=== PATIENT | male | born 1945 | race Caucasian/White ===

== ENCOUNTER 2023-02-18 09:14 | Day surgery (SDC) | payer MEDICARE ==
[2023-02-18] VITALS (9 sets, daily range): BP systolic 105–171; BP diastolic 56–80
[~2023-02-18] VITALS: Ht 177.8 cm; Wt 90.1 kg
[~2023-02-18 09:14] MED LIST: ASPI-10 PO; CLOP75TA34 PO; COR3.125T PO; HYDR-3965 PO; LOSA25TA96 PO; NIA500ERT PO
[2023-02-18] MEDS ORDERED: diphenhydrAMINE 25mg capsule PO PRN (09:55)
[2023-02-18] MEDS ORDERED: LORazepam 0.5 MG tablet PO PRN (09:55)
[2023-02-18] MEDS ORDERED: normal saline 1,000 ML IV SCH (09:55)
[2023-02-18] MEDS ORDERED: iohexol 350 MG/ML 50ML vial IV ONE (09:59)
[2023-02-18] MEDS ORDERED: heparin 1,000unit/ml 10ml vial 10 ML ONE (09:59)
[2023-02-18] MEDS ORDERED: iohexol 350MG/ML 100ml bottle IV ONE (09:59)
[2023-02-18] MEDS ORDERED: nitroGLYCERIN-Tridil 50MG/D5W 250 ML IV ONE (10:03)
[2023-02-18] MEDS ORDERED: verapamil 2.5 mg/ml inj IV ONE (10:04)
[2023-02-18] MEDS ORDERED: LIDOcaine 1% (10mg/ml) 2ml vial ONE ×2 (10:04→10:50)
[2023-02-18] MEDS ORDERED: fentaNYL/PF 50MCG/1 ML 2ML syringe ONE (10:04)
[2023-02-18] MEDS ORDERED: midazolam 1 mg/ML 2ml injection ONE (10:04)
[2023-02-18] MEDS ORDERED: POLY17PO10 PO (10:12)
[2023-02-18] MEDS ORDERED: OMEP20CA16 PO (10:13)
[2023-02-18] MEDS ORDERED: LOSA100T57 PO (10:13)
[2023-02-18] MEDS ORDERED: CHOL20002 PO (10:14)
[2023-02-18] MEDS ORDERED: ASPI-1071 PO (10:14)
[2023-02-18] MEDS ORDERED: furosemide 40mg/4ml inj ONE (12:03)
[2023-02-18 12:40] LABS: ISTAT Hct MIX 44 %PCV (42-52); ISTAT O2 SATURATION MIX VENOUS 69 % (60-80); ISTAT SOURCE BLNK
[2023-02-18] MEDS ORDERED: normal saline 1000ml 1,000 ML IV SCH (12:50)
[2023-02-18] MEDS ORDERED: furosemide 20 MG/2 ML vial IV ONE (12:55)
[2023-02-23 08:10] LABS: ISTAT Hct MIX 45 %PCV (42-52); ISTAT O2 SATURATION MIX VENOUS 93 % (60-80); ISTAT SOURCE BLNK
== END 2023-02-18 15:55 | disposition home or self-care (01) ==
LOC: SSTAY O 09:14
PROVIDERS: ATTEND Internal Medicine Cardiovascular Disease
DX: I25.10 Atherosclerotic heart disease of native coronary artery without angina pectoris (principal); I42.0 Dilated cardiomyopathy; I11.0 Hypertensive heart disease with heart failure; I50.22 Chronic systolic (congestive) heart failure; E78.5 Hyperlipidemia, unspecified; I34.1 Nonrheumatic mitral (valve) prolapse; K21.9 Gastro-esophageal reflux disease without esophagitis; J44.9 Chronic obstructive pulmonary disease, unspecified; I65.23 Occlusion and stenosis of bilateral carotid arteries; Z85.46 Personal history of malignant neoplasm of prostate; Z98.890 Other specified postprocedural states; Z72.89 Other problems related to lifestyle; Z87.891 Personal history of nicotine dependence; Z88.8 Allergy status to other drugs, medicaments and biological substances; Z95.5 Presence of coronary angioplasty implant and graft; Z79.899 Other long term (current) drug therapy; Z79.82 Long term (current) use of aspirin; Z82.5 Family history of asthma and other chronic lower respiratory diseases
CPT/HCPCS: 82803; 85014; 93005; 93460; 99152; C1894; J1644; J1940; J2250; J3010; J3490; J7030; Q0163; Q9967; 99153; A6258; A6402; C1725; C1751

== ENCOUNTER 2023-07-08 05:52 | Day surgery (SDC) | payer MEDICARE ==
[2023-07-08] VITALS (12 sets, daily range): BP systolic 104–129; BP diastolic 57–70; PULSE 73–99; RESP 12–18; TEMP 98; O2SAT 94–98
[~2023-07-08] VITALS: Ht 177.8 cm; Wt 87.3 kg
[~2023-07-08 05:52] MED LIST changes: -ASPI-10 PO; +ASPI-1071 PO; +CHOL20002 PO; -CLOP75TA34 PO; -HYDR-3965 PO; +LOSA100T58 PO; -LOSA25TA96 PO; -NIA500ERT PO; +OMEP20CA16 PO; +POLY17PO10 PO
[2023-07-08] MEDS ORDERED: cefazolin 2gm/D5W 100mL 100 ML IV ONE (06:40)
[2023-07-08] MEDS ORDERED: clindamycin-Cleocin 900mg/D5W 50 ML IV ONE (06:40)
[2023-07-08] MEDS ORDERED: SPIR25TA5 PO (06:51)
[2023-07-08] MEDS ORDERED: CHOL20002 PO (06:51)
[2023-07-08] MEDS ORDERED: DAPA10TA PO (06:51)
[2023-07-08 07:06] LABS: PROTHROMBIN TIME 10.6 SECONDS (9.0-12.0)
[2023-07-08] MEDS ORDERED: midazolam 1 mg/ML 2ml injection ONE ×3 (07:36→10:36)
[2023-07-08] MEDS ORDERED: iohexol 350MG/ML 100ml bottle IV ONE (07:36)
[2023-07-08] MEDS ORDERED: LIDOcaine 1% w/EPI 1:100,000 inj. MDV 50 ML VIAL ONE (07:36)
[2023-07-08] MEDS ORDERED: fentaNYL/PF 50MCG/1 ML 2ML syringe ONE (07:36)
[2023-07-08] MEDS ORDERED: ceFAZolin 1000mg inj ONE (07:36)
[2023-07-08] MEDS ORDERED: HYDROcodone/acetaminophen 5mg/325mg tablet PO PRN (11:55)
[2023-07-08] MEDS ORDERED: HYDROcodone/acetaminophen 10/325mg tab PO PRN (11:55)
[2023-07-08] MEDS ORDERED: normal saline 1000ml 1,000 ML IV SCH (11:55)
[2023-07-08] MEDS ORDERED: vancomycin/NS 1 GM ADD-VANTAGE 250 ML IV ONE (13:00)
== END 2023-07-08 16:00 | disposition home or self-care (01) ==
LOC: SSTAY O 05:52
PROVIDERS: ATTEND Internal Medicine Cardiovascular Disease
DX: I42.0 Dilated cardiomyopathy (principal); I44.7 Left bundle-branch block, unspecified; I11.0 Hypertensive heart disease with heart failure; I50.22 Chronic systolic (congestive) heart failure; E78.5 Hyperlipidemia, unspecified; I25.10 Atherosclerotic heart disease of native coronary artery without angina pectoris; I08.1 Rheumatic disorders of both mitral and tricuspid valves; Z79.899 Other long term (current) drug therapy
CPT/HCPCS: 33225; 33249; 36415; 71046; 85610; 93005; 99152; 99153; C1769; C1882; C1895; C1898; C1900; J0690; J2250; J3010; J3370; J3490; J7030; Q9967; A4565; A6258; A6449

== ENCOUNTER 2023-08-31 08:00 | Inpatient (IN) | payer MEDICARE ==
[2023-08-19 11:23] LABS: ABG BASE EXCESS -2.8 mmol/L (-2.0-2.0); ABG OXYGEN SATURATION 97.9 % (94-97); ABG PCO2 (T) 30.6 mmHg (35.0-48.0); ABG PH (T) 7.434 (7.340-7.440); ABG PO2 (T) 94.8 mmHg (75.0-100.0); ALLEN'S TEST Yes; FCOHb 0.6 % (0.0-3.9); FHHb 2.1 % (0.0-5.0); FMetHb 0.3 % (0.0-1.5); MODE ROOM AIR
[~2023-08-31] VITALS: Ht 177.8 cm; Wt 98.4 kg
[~2023-08-31 08:00] MED LIST changes: +DAPA10TA PO; +SPIR25TA5 PO; +albuterol 2.5 MG/3 ML nebule NEB ONE
[2023-09-10] VITALS (39 sets, daily range): BP systolic 110–174; BP diastolic 45–99; PULSE 28–100; RESP 11–18; TEMP 97–98.1; O2SAT 96–100
[2023-09-10] MEDS ORDERED: ringers solution, lacted 1,000 ML IV SCH ×2 (05:00→14:35)
[2023-09-10] MEDS ORDERED: DOCUMENT DATE & TIME OF BETA-BLOCKER PO ONE (05:30)
[2023-09-10] MEDS ORDERED: famotidine 20mg tablet PO ONE (05:30)
[2023-09-10] MEDS ORDERED: cefazolin 2gm/D5W 100mL 100 ML IV ONE (05:30)
[2023-09-10 09:55] LABS: BASOPHILS % (AUTO) 0.5 % (0-1); EOSINOPHILS # (AUTO) 0.2 X10'3 (0-0.9); EOSINOPHILS % (AUTO) 3.4 % (0-6); LYMPHOCYTES # (AUTO) 1.4 X10'3 (1.1-4.8); LYMPHOCYTES % (AUTO) 23.1 % (21-51); MEAN CORPUSCULAR HEMOGLOBIN 32.1 PG (27.0-31.0); MEAN CORPUSCULAR HGB CONC 34.3 g/dL (33.0-36.5); MEAN CORPUSCULAR VOLUME 93.7 FL (78-98); MEAN PLATELET VOLUME 8.4 FL (7.4-10.4); MONOCYTES # (AUTO) 0.6 X10'3 (0-0.9); MONOCYTES % (AUTO) 9.2 % (2-12); NEUTROPHILS # (AUTO) 3.8 X10'3 (1.8-7.7); NEUTROPHILS % (AUTO) 63.8 % (42-75); PRE OP HEMATOCRIT 47.6 % (42.0-52.0); PRE OP HEMOGLOBIN 16.3 g/dL (14.0-17.9); PRE OP PLATELET COUNT 163 X10'3 (140-440); RED BLOOD COUNT 5.08 X10'6 (4.70-6.10); RED CELL DISTRIBUTION WIDTH 13.1 % (11.5-14.5)
[2023-09-10] MEDS ORDERED: sevoflurane 250ml liquid IH ONE (09:56)
[2023-09-10] MEDS ORDERED: ceFAZolin/dextrose 1 GM/50ml ADD-VANTAGE bag IV ONE (09:56)
[2023-09-10 10:01] LABS: APTT 26 SECONDS (22-32); PRE OP INR 0.9 INR; PRE OP PROTIME 10.2 SECONDS (9.0-12.0)
[2023-09-10 10:02] LABS: ALBUMIN/GLOBULIN RATIO 1.1 (1.1-1.5); ALKALINE PHOSPHATASE 62 IU/L (46-116); BLOOD UREA NITROGEN 18 MG/DL (7-18); BUN/CREATININE RATIO 15.3 (10.0-20.0); CALCIUM 9.2 MG/DL (8.5-10.1); CHLORIDE 101 MMOL/L (99-107); CREATININE 1.18 MG/DL (0.60-1.10); PRE OP ALT 18 U/L (30-65); PRE OP ANION GAP 6 (8-16); PRE OP AST 15 U/L (10-37); PRE OP BILIRUB, TOTAL 0.6 MG/DL (0.0-1.0); PRE OP GLUCOSE 102 MG/DL (70-104); PRE OP POTASSIUM 4.3 MMOL/L (3.4-5.1); PRE OP SODIUM 137 MMOL/L (135-145); TOTAL CARBON DIOXIDE 30.2 MMOL/L (24-32); TOTAL PROTEIN 7.5 G/DL (6.4-8.2); eCRCL 53 ML/MIN; eGFR 60 ML/MIN
[2023-09-10] MEDS ORDERED: midazolam 1 mg/ML 2ml injection ONE (10:03)
[2023-09-10] MEDS ORDERED: fentaNYL /PF 50mcg/ml 5ml ampule ONE (10:20)
[2023-09-10] MEDS ORDERED: BUPIVACAINE liposomal/PF 13.3 MG/ML vial IM ONE (10:22)
[2023-09-10] MEDS ORDERED: BUPIVAcaine/PF 2.5mg/ml (0.25%) 10ml vial ONE (10:22)
[2023-09-10 10:26] LABS: BILIRUBIN,URINE NEGATIVE (Neg); CLARITY,URINE CLEAR (Clear); COLOR,URINE YELLOW (Yellow); GLUCOSE, URINE >=1000 mg/dl (Neg); KETONES,URINE TRACE mg/dl (Neg); LEUKOCYTE ESTERASE ,URINE NEGATIVE (Neg); NITRITES, URINE NEGATIVE (Neg); OCCULT BLOOD,URINE NEGATIVE (Neg); PROTEIN,URINE NEGATIVE (Neg); UROBILINOGEN,URINE 0.2 E.U/dL (0.2-1.0)
[2023-09-10 10:32] LABS: UA COLLECTION TYPE CLN CATCH MIDSTREAM
[2023-09-10 10:35] LABS: BACTERIA,URINE NONE SEEN /HPF (Neg); RBC,URINE 0-2 /HPF (0-2); SQUAMOUS EPITHELIAL CELL,UR FEW /LPF (FEW); WBC,URINE 0-4 /HPF (0-4)
[2023-09-10] MEDS ORDERED: rocuronium 10mg/ml inj IV ONE ×2 (11:15)
[2023-09-10] MEDS ORDERED: LIDOcaine 2% (20mg/ml) 5ml vial ONE (11:15)
[2023-09-10] MEDS ORDERED: propofol inj 20 ML IV ONE (11:15)
[2023-09-10] MEDS ORDERED: ondansetron/PF 4mg/2ml inj ONE (13:57)
[2023-09-10] MEDS ORDERED: phenylephrine 10mg/ml inj. -priapism dosing ONE (13:57)
[2023-09-10] MEDS ORDERED: dexamethasone sod phosphate 4mg/ml inj. ONE (13:57)
[2023-09-10] MEDS ORDERED: glycopyrrolate 0.2mg/ml inj ONE (14:16)
[2023-09-10] MEDS ORDERED: neostigmine methylsulfate 1 MG/ML 10ml vial ONE (14:16)
--- NOTE | 2023-09-10 14:30 | NUR ---
Received from OR via ICU BED TO RR 7, accompanied by Anesthesiologist DR BLEVINS and report given by Anesthesiolgist. PT PRESENTS WITH PIV 20G LEFT FOREARM, CENTRAL LINE RIGHT IJ, ART LINE RIGHT WRIST, CHEST TUBE RIGHT CHEST, SPO2 98% 6L MASK, RT PAGED FOR ABG, CHEST XRAY IN RR BED 7, DR TATUM AT BEDSIDE, LR IN RR, VSS. Addendum: 09/10/23 at 1500 by Tressa Palencia RN, RN Amended: Links added.
[2023-09-10] MEDS ORDERED: morphine 2 MG/ML inj. syringe IV PRN ×2 (14:35→15:00)
[2023-09-10] MEDS ORDERED: hydrALAZINE 20mg/ml inj. IV PRN (14:35)
[2023-09-10] MEDS ORDERED: meperidine/PF 25mg/ml syringe IV PRN ×3 (14:35)
[2023-09-10] MEDS ORDERED: proCHLORperazine 10 MG/2 ml inj IV PRN (14:35)
[2023-09-10] MEDS ORDERED: morphine 4 MG/ML inj SYRINge IV PRN ×2 (14:35→15:00)
[2023-09-10] MEDS ORDERED: meperidine/PF 25mg/ml syringe ONE (14:35)
[2023-09-10] MEDS ORDERED: acetaminophen 1,000mg/100ml IV 100 ML IV PRN (14:35)
[2023-09-10] MEDS ORDERED: ondansetron/PF 4mg/2ml inj IV PRN ×2 (14:35→15:00)
[2023-09-10] MEDS ORDERED: labetalol 20mg/4ml (5mg/ml) syringe IV PRN (14:35)
[2023-09-10] MEDS ORDERED: ketorolac trometh. 30mg/ml inj. IV ONE (14:40)
[2023-09-10] MEDS ORDERED: metoclopramide 5 mg/ml inj IV PRN (15:00)
[2023-09-10] MEDS ORDERED: magnesium hydroxide 30ml (MOM) UD suspension PO PRN (15:00)
[2023-09-10 15:03] LABS: ABG BASE EXCESS -4.2 mmol/L (-2.0-2.0); ABG HCO3 22.8 mmol/L (22.0-26.0); ABG OXYGEN SATURATION 84.3 % (94-97); ABG PCO2 (T) 47.5 mmHg (35.0-48.0); ABG PH (T) 7.295 (7.340-7.440); ABG PO2 (T) 49.2 mmHg (75.0-100.0); FCOHb 1.2 % (0.0-3.9); FHHb 15.5 % (0.0-5.0); FMetHb 0.1 % (0.0-1.5); FO2Hb 83.2 % (94-97); PATIENT TEMPERATURE 36.4; TOTAL HEMOGLOBIN 15.8 G/dl (14.0-17.9)
[2023-09-10 15:15] LABS: BASOPHILS % (AUTO) 0.2 % (0-1); EOSINOPHILS # (AUTO) 0.1 X10'3 (0-0.9); EOSINOPHILS % (AUTO) 0.6 % (0-6); HEMATOCRIT 45.5 % (42.0-52.0); HEMOGLOBIN 15.4 g/dl (14.0-17.9); LYMPHOCYTES # (AUTO) 0.7 X10'3 (1.1-4.8); LYMPHOCYTES % (AUTO) 7.1 % (21-51); MEAN CORPUSCULAR HEMOGLOBIN 31.9 PG (27.0-31.0); MEAN CORPUSCULAR HGB CONC 33.9 g/dL (33.0-36.5); MEAN CORPUSCULAR VOLUME 94.2 FL (78-98); MONOCYTES # (AUTO) 0.3 X10'3 (0-0.9); MONOCYTES % (AUTO) 2.6 % (2-12); NEUTROPHILS # (AUTO) 8.6 X10'3 (1.8-7.7); NEUTROPHILS % (AUTO) 89.5 % (42-75); PLATELET COUNT 155 X10'3 (140-440); RED BLOOD COUNT 4.83 X10'6 (4.70-6.10); RED CELL DISTRIBUTION WIDTH 13.2 % (11.5-14.5); WHITE BLOOD COUNT 9.6 X10'3 (4.5-11.0)
[2023-09-10 15:50] LABS: ABG BASE EXCESS -3.7 mmol/L (-2.0-2.0); ABG HCO3 22.7 mmol/L (22.0-26.0); ABG OXYGEN SATURATION 96.3 % (94-97); ABG PCO2 (T) 44.4 mmHg (35.0-48.0); ABG PH (T) 7.322 (7.340-7.440); ABG PO2 (T) 82.1 mmHg (75.0-100.0); FCOHb 1.3 % (0.0-3.9); FHHb 3.6 % (0.0-5.0); FMetHb 0.2 % (0.0-1.5); FO2Hb 94.9 % (94-97); MODE NASAL CANNULA; PATIENT TEMPERATURE 36.2
[2023-09-10 16:49] LABS: ALANINE AMINOTRANSFERASE 18 U/L (12-78); ALBUMIN 3.5 G/DL (3.4-5.0); ALBUMIN/GLOBULIN RATIO 1.1 (1.1-1.5); ALKALINE PHOSPHATASE 59 IU/L (46-116); ANION GAP 10 (8-16); ASPARTATE AMINO TRANSFERASE 17 U/L (10-37); BILIRUBIN,TOTAL 0.5 MG/DL (0.1-1.0); BLOOD UREA NITROGEN 18 MG/DL (7-18); BUN/CREATININE RATIO 15.3 (10.0-20.0); CALCIUM 8.6 MG/DL (8.5-10.1); CHLORIDE 103 MMOL/L (99-107); CREATININE 1.18 MG/DL (0.60-1.10); GLUCOSE 138 MG/DL (70-104); POTASSIUM 3.9 MMOL/L (3.5-5.1); SODIUM 137 MMOL/L (135-145); TOTAL CARBON DIOXIDE 24.3 MMOL/L (24-32); TOTAL PROTEIN 6.7 G/DL (6.4-8.2); eCRCL 52 ML/MIN; eGFR 60 ML/MIN
--- NOTE | 2023-09-10 18:25 | NUR ---
ART LINE REMOVED FROM PT RIGHT WRIST, 4X4 PLACED WITH COBAN, PT TOLERATED WELL. Addendum: 09/10/23 at 1828 by Tressa Palencia RN, RN Amended: Links added.
--- NOTE | 2023-09-10 18:30 | NUR ---
Patient in room PAS IN 900. I have received report from Tressa and had the opportunity to ask questions.
--- NOTE | 2023-09-10 18:40 | NUR ---
pt arrived on unit, is in no distress, fluids running per md orders, vital signs stable and documented in interventions. Placed on vitals machine for post op vitals. Gave report to BENEDICT Morales and she has assumed patient care.
--- NOTE | 2023-09-10 18:45 | NUR ---
patient transferred from to room 4012B. celestino called and notified of room location. she is at home. repositioned pt on left side, taught to splint side with cough and encouraged deep breaths. VSS, 2L oxygen. chest tube dressing CDI and 100ml in pleurovac. on wall suction low continuous. bloody drainage noted in tubing. CVL right neck CDI running fluids. pt painful, will check for pain medication. call light in reach. ice chips and water at bedside.
--- NOTE | 2023-09-10 18:50 | NUR ---
Report called to receiving nurse BEVERLY MCMULLEN. Transferred via ICU BED TO ROOM 4012B. BED IN LOW LOCKED POSITION WITH CALL LIGHT IN REACH, CHEST TUBE HOKKED UP TO WALL SUCTION LOW CONTINUOUS, LR RUNNING AT 100MLS/HR, IV PUMPSON PT'S RIGHT SIDE OF BED. PT Belongings TO ROOM 4012B 1 PT BELONGINGS BAG AND UPPER AND LOWER FULL DENTURES IN BAG HANGING FROM IV POLE. Special Issues communicated to receiving nurse. Addendum: 09/10/23 at 1907 by Tressa Palencia RN, RN Amended: Links added.
[2023-09-10] MEDS: gabapentin 300mg capsule PO SCH (19:34)
[2023-09-10] MEDS: HYDROmorphone inj. 0.5 MG/0.5 ML DISP.SYRIN IV PRN (19:34)
[2023-09-10] MEDS: ceFAZolin inj. 1,000 MG in dextrose 5%-water 50ml 50 ML IV SCH (20:12)
[2023-09-10] MEDS: potassium Cl 20mEq in D5-NS 1,000 ML IV SCH (20:12)
--- NOTE | 2023-09-10 21:09 | NUR ---
notified jose about low U.O. 10ml/this last hour. chest tube out 30 ml. via operating room nurse. MD still in surgery at this facility. also requested home med rec when MD is done with surgery.
[2023-09-10] MEDS ORDERED: CHOL100025 PO (21:12)
--- NOTE | 2023-09-10 23:09 | NUR ---
dr. walton called - notified him of chest tube out put 40ml, urine out put picking up a little. VSS, oxygen 2L at 94%. no crepitus. went over home meds and MD will address in the am. holding bp meds tonight.
[2023-09-11] VITALS (11 sets, daily range): BP systolic 85–145; BP diastolic 42–71; PULSE 72–83; RESP 14–20; TEMP 97.1–98.7; O2SAT 94–97
--- NOTE | 2023-09-11 00:33 | NUR ---
urine out put 100ml in 4 hours. VSS.
[2023-09-11] MEDS: HYDROcodone/acetaminophen 10/325mg tab PO PRN ×4 (01:48→20:33)
[2023-09-11] MEDS: potassium Cl 20mEq in D5-NS 1,000 ML IV SCH (03:30)
[2023-09-11] MEDS: ceFAZolin inj. 1,000 MG in dextrose 5%-water 50ml 50 ML IV SCH (04:04)
[2023-09-11] MEDS: HYDROmorphone inj. 0.5 MG/0.5 ML DISP.SYRIN IV PRN (04:06)
[2023-09-11 06:09] LABS: BASOPHILS % (AUTO) 0.1 % (0-1); EOSINOPHILS % (AUTO) 0 % (0-6); LYMPHOCYTES # (AUTO) 0.8 X10'3 (1.1-4.8); MONOCYTES # (AUTO) 0.9 X10'3 (0-0.9); WHITE BLOOD COUNT 9.4 X10'3 (4.5-11.0)
[2023-09-11 06:12] LABS: HEMATOCRIT 39.5 % (42.0-52.0); HEMOGLOBIN 13.6 g/dl (14.0-17.9); LYMPHOCYTES % (AUTO) 8.2 % (21-51); MEAN CORPUSCULAR HGB CONC 34.4 g/dL (33.0-36.5); MEAN CORPUSCULAR VOLUME 92.9 FL (78-98); MEAN PLATELET VOLUME 7.7 FL (7.4-10.4); NEUTROPHILS # (AUTO) 7.7 X10'3 (1.8-7.7); NEUTROPHILS % (AUTO) 81.7 % (42-75); PLATELET COUNT 144 X10'3 (140-440); RED BLOOD COUNT 4.25 X10'6 (4.70-6.10)
[2023-09-11 06:18] LABS: ALANINE AMINOTRANSFERASE 12 U/L (12-78); ALBUMIN 2.8 G/DL (3.4-5.0); ALKALINE PHOSPHATASE 46 IU/L (46-116); ANION GAP 10 (8-16); ASPARTATE AMINO TRANSFERASE 18 U/L (10-37); BILIRUBIN,TOTAL 0.4 MG/DL (0.1-1.0); BLOOD UREA NITROGEN 22 MG/DL (7-18); BUN/CREATININE RATIO 16.4 (10.0-20.0); CALCIUM 8.1 MG/DL (8.5-10.1); CHLORIDE 103 MMOL/L (99-107); CREATININE 1.34 MG/DL (0.60-1.10); GLUCOSE 137 MG/DL (70-104); MAGNESIUM 1.9 MG/DL (1.5-2.4); PHOSPHORUS 3.7 MG/DL (2.3-4.5); POTASSIUM 4.7 MMOL/L (3.5-5.1); SODIUM 138 MMOL/L (135-145); TOTAL CARBON DIOXIDE 25.4 MMOL/L (24-32); TOTAL PROTEIN 5.7 G/DL (6.4-8.2); eCRCL 45 ML/MIN; eGFR 52 ML/MIN
--- NOTE | 2023-09-11 06:42 | NUR ---
bedside report given to BENEDICT vigil. noted decreased urine output that is normalizing. chest tube drainage marked. dressings CDI. pt in good spirits.
--- NOTE | 2023-09-11 07:24 | NUR ---
VERY LATE ENTRY HOWEVER ASSESSMENT COMPLETED. LOST PAPERWORK WAS FOUND TODAY. Addendum: 09/11/23 at 6746 by Denver Palencia RN, RN Amended: Links added.
[2023-09-11] MEDS: gabapentin 300mg capsule PO SCH ×2 (08:17→20:32)
--- NOTE | 2023-09-11 14:22 | NUR ---
Surgeon aware of low urine OP of 200ml via f/c. PO fluid encouraged.
--- NOTE | 2023-09-11 14:24 | NUR ---
Med req completed by surgeon. Orders faxed to pharmacy.
--- NOTE | 2023-09-11 14:58 | NUR ---
Lab made aware that central line will be discontinued.
--- NOTE | 2023-09-11 17:07 | NUR ---
Central line discontinued. No complications. Bandage applied. Tip intact.
--- NOTE | 2023-09-11 18:46 | NUR ---
Paged RT to treat.
--- NOTE | 2023-09-11 18:47 | NUR ---
Report given to Andreea MCMULLEN production supervisor off shift.
--- NOTE | 2023-09-11 19:00 | NUR ---
Patient in room ORTHO 4012. I have received report from MARCELINA and had the opportunity to ask questions and assume patient care.
[2023-09-11] MEDS: albuterol 2.5 MG/3 ML nebule NEB PRN (19:06)
[2023-09-11] MEDS: polyethylene glycol 3350 17gm powd pack PO SCH (20:32)
[2023-09-11] MEDS: carVEDilol 3.125mg tablet PO SCH (20:32)
[2023-09-11] MEDS: pantoprazole 40mg Tablet.DR PO SCH (20:32)
[2023-09-12] VITALS (10 sets, daily range): BP systolic 97–132; BP diastolic 42–66; PULSE 68–81; RESP 14–20; TEMP 97.1–97.9; O2SAT 95–98
[2023-09-12] MEDS: HYDROcodone/acetaminophen 10/325mg tab PO PRN ×4 (04:19→20:07)
--- NOTE | 2023-09-12 06:36 | NUR ---
Problems reprioritized. Patient report given, questions answered & plan of care reviewed with BART MCMULLEN.
[2023-09-12 07:00] LABS: BASOPHILS % (AUTO) 0.3 % (0-1); EOSINOPHILS % (AUTO) 0.4 % (0-6); HEMATOCRIT 39.1 % (42.0-52.0); LYMPHOCYTES # (AUTO) 0.9 X10'3 (1.1-4.8); LYMPHOCYTES % (AUTO) 11.8 % (21-51); MEAN CORPUSCULAR HEMOGLOBIN 31.5 PG (27.0-31.0); MEAN CORPUSCULAR HGB CONC 33.3 g/dL (33.0-36.5); MEAN CORPUSCULAR VOLUME 94.6 FL (78-98); MEAN PLATELET VOLUME 7.9 FL (7.4-10.4); MONOCYTES # (AUTO) 0.9 X10'3 (0-0.9); MONOCYTES % (AUTO) 12.2 % (2-12); NEUTROPHILS # (AUTO) 5.6 X10'3 (1.8-7.7); NEUTROPHILS % (AUTO) 75.3 % (42-75); PLATELET COUNT 122 X10'3 (140-440); RED BLOOD COUNT 4.14 X10'6 (4.70-6.10); RED CELL DISTRIBUTION WIDTH 13.1 % (11.5-14.5); WHITE BLOOD COUNT 7.4 X10'3 (4.5-11.0)
[2023-09-12 07:15] LABS: ALANINE AMINOTRANSFERASE 14 U/L (12-78); ALBUMIN 2.7 G/DL (3.4-5.0); ALBUMIN/GLOBULIN RATIO 0.8 (1.1-1.5); ALKALINE PHOSPHATASE 48 IU/L (46-116); ANION GAP 5 (8-16); ASPARTATE AMINO TRANSFERASE 16 U/L (10-37); BILIRUBIN,TOTAL 0.6 MG/DL (0.1-1.0); BLOOD UREA NITROGEN 15 MG/DL (7-18); BUN/CREATININE RATIO 15.2 (10.0-20.0); CALCIUM 8.3 MG/DL (8.5-10.1); CHLORIDE 103 MMOL/L (99-107); CREATININE 0.99 MG/DL (0.60-1.10); GLUCOSE 109 MG/DL (70-104); PHOSPHORUS 2.4 MG/DL (2.3-4.5); POTASSIUM 4.2 MMOL/L (3.5-5.1); SODIUM 136 MMOL/L (135-145); TOTAL CARBON DIOXIDE 27.9 MMOL/L (24-32); TOTAL PROTEIN 5.9 G/DL (6.4-8.2); eCRCL 64 ML/MIN; eGFR 73 ML/MIN
[2023-09-12] MEDS ORDERED: cholecalciferol (vitamin D3) 1,000 unit (25mcg) tablet PO SCH (08:00)
[2023-09-12] MEDS: potassium Cl 20mEq in D5-NS 1,000 ML IV SCH (08:00)
[2023-09-12] MEDS: polyethylene glycol 3350 17gm powd pack PO SCH ×2 (08:17→20:06)
[2023-09-12] MEDS: gabapentin 300mg capsule PO SCH (08:18)
[2023-09-12] MEDS: pantoprazole 40mg Tablet.DR PO SCH ×2 (08:18→20:06)
[2023-09-12] MEDS: carVEDilol 3.125mg tablet PO SCH ×2 (09:14→20:06)
[2023-09-12] MEDS: aspirin 81mg, enteric-coated 1 TAB TABLET.DR PO SCH (09:15)
[2023-09-12] MEDS: spironolactone 25 MG tablet PO SCH (10:15)
[2023-09-12] MEDS: DAPAGLIFLOZIN 10MG TABLET PO SCH (10:15)
--- NOTE | 2023-09-12 13:02 | NUR ---
Called Dr Hutchinson re: pt's chest tube dressing saturated when chest tube placed on water seal; Dr Hutchinson said it's ok to change saturated dressing and to leave chest tube to suction for now.
--- NOTE | 2023-09-12 18:31 | NUR ---
Gave report to Andreea MCMULLEN.
[2023-09-13] VITALS (8 sets, daily range): BP systolic 112–147; BP diastolic 51–69; PULSE 73–85; RESP 11–18; TEMP 97.6–99; O2SAT 94–99
[2023-09-13] MEDS: HYDROcodone/acetaminophen 10/325mg tab PO PRN ×3 (00:11→09:03)
[2023-09-13 05:50] LABS: ALANINE AMINOTRANSFERASE 12 U/L (12-78); ALBUMIN/GLOBULIN RATIO 0.8 (1.1-1.5); ALKALINE PHOSPHATASE 53 IU/L (46-116); ANION GAP 5 (8-16); ASPARTATE AMINO TRANSFERASE 17 U/L (10-37); BILIRUBIN,TOTAL 0.7 MG/DL (0.1-1.0); BLOOD UREA NITROGEN 15 MG/DL (7-18); BUN/CREATININE RATIO 15.2 (10.0-20.0); CHLORIDE 100 MMOL/L (99-107); CREATININE 0.99 MG/DL (0.60-1.10); GLUCOSE 99 MG/DL (70-104); MAGNESIUM 2.1 MG/DL (1.5-2.4); PHOSPHORUS 2.1 MG/DL (2.3-4.5); SODIUM 137 MMOL/L (135-145); TOTAL CARBON DIOXIDE 31.8 MMOL/L (24-32); TOTAL PROTEIN 6.8 G/DL (6.4-8.2); eCRCL 64 ML/MIN; eGFR 73 ML/MIN
[2023-09-13 05:56] LABS: BASOPHILS % (AUTO) 0.3 % (0-1); EOSINOPHILS # (AUTO) 0.1 X10'3 (0-0.9); EOSINOPHILS % (AUTO) 1.3 % (0-6); HEMATOCRIT 41.7 % (42.0-52.0); HEMOGLOBIN 14.1 g/dl (14.0-17.9); LYMPHOCYTES # (AUTO) 0.8 X10'3 (1.1-4.8); MEAN CORPUSCULAR HEMOGLOBIN 32.1 PG (27.0-31.0); MEAN CORPUSCULAR HGB CONC 33.7 g/dL (33.0-36.5); MEAN CORPUSCULAR VOLUME 95.4 FL (78-98); MEAN PLATELET VOLUME 8.1 FL (7.4-10.4); MONOCYTES % (AUTO) 11.3 % (2-12); NEUTROPHILS # (AUTO) 6.7 X10'3 (1.8-7.7); NEUTROPHILS % (AUTO) 78.1 % (42-75); PLATELET COUNT 142 X10'3 (140-440); RED BLOOD COUNT 4.37 X10'6 (4.70-6.10); RED CELL DISTRIBUTION WIDTH 13.1 % (11.5-14.5); WHITE BLOOD COUNT 8.5 X10'3 (4.5-11.0)
--- NOTE | 2023-09-13 06:26 | NUR ---
Problems reprioritized. Patient report given, questions answered & plan of care reviewed with CARLOZ MCMULLEN.
--- NOTE | 2023-09-13 07:22 | NUR ---
Patient in room ORTHO 4012B. I have received report from BENEDICT Doran and had the opportunity to ask questions and assume patient care.
[2023-09-13] MEDS: DAPAGLIFLOZIN 10MG TABLET PO SCH (09:03)
[2023-09-13] MEDS: carVEDilol 3.125mg tablet PO SCH ×2 (09:03→19:45)
[2023-09-13] MEDS: aspirin 81mg, enteric-coated 1 TAB TABLET.DR PO SCH (09:04)
[2023-09-13] MEDS: pantoprazole 40mg Tablet.DR PO SCH ×2 (09:04→19:45)
[2023-09-13] MEDS: spironolactone 25 MG tablet PO SCH (09:04)
[2023-09-13] MEDS: polyethylene glycol 3350 17gm powd pack PO SCH ×2 (09:05→19:44)
[2023-09-13] MEDS ORDERED: Neutra Phos packet PO PRN (11:20)
--- NOTE | 2023-09-13 17:51 | NUR ---
I have reviewed and agree with all interventions, assessments performed and documented by MANDY LOO.
--- NOTE | 2023-09-13 18:13 | NUR ---
Problems reprioritized. Patient report given, questions answered & plan of care reviewed with BENEDICT Doran.
--- NOTE | 2023-09-13 18:44 | NUR ---
Patient in room ORTHO 4012. I have received report from CARLOZ MCMULLEN and had the opportunity to ask questions and assume patient care.
[2023-09-13] MEDS: potassium Cl 20mEq in D5-NS 1,000 ML IV SCH (20:54)
[2023-09-14] VITALS (7 sets, daily range): BP systolic 122–154; BP diastolic 54–70; PULSE 77–101; RESP 14–18; TEMP 98.1–98.8; O2SAT 87–99
[2023-09-14] MEDS: HYDROcodone/acetaminophen 10/325mg tab PO PRN ×2 (01:41→18:01)
[2023-09-14 06:30] LABS: ALANINE AMINOTRANSFERASE 14 U/L (12-78); ALBUMIN 2.7 G/DL (3.4-5.0); ALBUMIN/GLOBULIN RATIO 0.7 (1.1-1.5); ALKALINE PHOSPHATASE 57 IU/L (46-116); ANION GAP 7 (8-16); ASPARTATE AMINO TRANSFERASE 14 U/L (10-37); BILIRUBIN,TOTAL 0.6 MG/DL (0.1-1.0); BLOOD UREA NITROGEN 15 MG/DL (7-18); BUN/CREATININE RATIO 15.3 (10.0-20.0); CALCIUM 8.9 MG/DL (8.5-10.1); CHLORIDE 98 MMOL/L (99-107); CREATININE 0.98 MG/DL (0.60-1.10); GLUCOSE 82 MG/DL (70-104); MAGNESIUM 2.1 MG/DL (1.5-2.4); PHOSPHORUS 2.5 MG/DL (2.3-4.5); POTASSIUM 4.4 MMOL/L (3.5-5.1); SODIUM 135 MMOL/L (135-145); TOTAL CARBON DIOXIDE 30.3 MMOL/L (24-32); TOTAL PROTEIN 6.6 G/DL (6.4-8.2); eCRCL 64 ML/MIN; eGFR 74 ML/MIN
[2023-09-14 06:32] LABS: BASOPHILS % (AUTO) 0.3 % (0-1); EOSINOPHILS # (AUTO) 0.1 X10'3 (0-0.9); EOSINOPHILS % (AUTO) 1.1 % (0-6); HEMATOCRIT 38.7 % (42.0-52.0); LYMPHOCYTES # (AUTO) 0.7 X10'3 (1.1-4.8); LYMPHOCYTES % (AUTO) 9.8 % (21-51); MEAN CORPUSCULAR HGB CONC 33.7 g/dL (33.0-36.5); MEAN CORPUSCULAR VOLUME 94.8 FL (78-98); MEAN PLATELET VOLUME 8.1 FL (7.4-10.4); MONOCYTES # (AUTO) 0.9 X10'3 (0-0.9); MONOCYTES % (AUTO) 13.6 % (2-12); NEUTROPHILS # (AUTO) 5.1 X10'3 (1.8-7.7); NEUTROPHILS % (AUTO) 75.2 % (42-75); PLATELET COUNT 143 X10'3 (140-440); RED BLOOD COUNT 4.08 X10'6 (4.70-6.10); RED CELL DISTRIBUTION WIDTH 12.7 % (11.5-14.5); WHITE BLOOD COUNT 6.8 X10'3 (4.5-11.0)
--- NOTE | 2023-09-14 06:33 | NUR ---
Problems reprioritized. Patient report given, questions answered & plan of care reviewed with NILAM MCMULLEN.
--- NOTE | 2023-09-14 06:38 | NUR ---
Patient in room ORTHO 4012. I have received report from estrellita schwarz and had the opportunity to ask questions and assume patient care.
[2023-09-14] MEDS ORDERED: cholecalciferol (vitamin D3) 1,000 unit (25mcg) tablet PO SCH ×3 (07:00→08:11)
[2023-09-14] MEDS: aspirin 81mg, enteric-coated 1 TAB TABLET.DR PO SCH (08:04)
[2023-09-14] MEDS: DAPAGLIFLOZIN 10MG TABLET PO SCH (08:04)
[2023-09-14] MEDS: polyethylene glycol 3350 17gm powd pack PO SCH ×2 (08:04→20:00)
[2023-09-14] MEDS: spironolactone 25 MG tablet PO SCH (08:05)
[2023-09-14] MEDS: pantoprazole 40mg Tablet.DR PO SCH ×2 (08:05→20:54)
[2023-09-14] MEDS: carVEDilol 3.125mg tablet PO SCH ×2 (08:06→20:54)
[2023-09-15] VITALS (8 sets, daily range): BP systolic 97–143; BP diastolic 42–66; PULSE 62–90; RESP 15–18; TEMP 97.9–99; O2SAT 92–97
--- NOTE | 2023-09-15 03:26 | NUR ---
Problems reprioritized. Patient report given, questions answered & plan of care reviewed with priscilla schwarz.
--- NOTE | 2023-09-15 03:33 | NUR ---
Patient in room ORTHO 4012. I have received report from Raul and had the opportunity to ask questions and assume patient care.
--- NOTE | 2023-09-15 06:13 | NUR ---
Problems reprioritized. Patient report given, questions answered & plan of care reviewed with Deanna.
--- NOTE | 2023-09-15 06:27 | NUR ---
Patient in room ORTHO 4012. I have received report from priscilla scwharz and had the opportunity to ask questions and assume patient care.
[2023-09-15 06:52] LABS: BASOPHILS % (AUTO) 0.2 % (0-1); EOSINOPHILS # (AUTO) 0.1 X10'3 (0-0.9); EOSINOPHILS % (AUTO) 1.4 % (0-6); HEMATOCRIT 38.5 % (42.0-52.0); LYMPHOCYTES # (AUTO) 0.6 X10'3 (1.1-4.8); LYMPHOCYTES % (AUTO) 8.4 % (21-51); MEAN CORPUSCULAR HEMOGLOBIN 31.7 PG (27.0-31.0); MEAN CORPUSCULAR HGB CONC 33.8 g/dL (33.0-36.5); MEAN CORPUSCULAR VOLUME 93.8 FL (78-98); MEAN PLATELET VOLUME 7.5 FL (7.4-10.4); MONOCYTES % (AUTO) 14.9 % (2-12); NEUTROPHILS # (AUTO) 5.1 X10'3 (1.8-7.7); NEUTROPHILS % (AUTO) 75.1 % (42-75); PLATELET COUNT 164 X10'3 (140-440); RED CELL DISTRIBUTION WIDTH 12.7 % (11.5-14.5); WHITE BLOOD COUNT 6.9 X10'3 (4.5-11.0)
[2023-09-15 07:14] LABS: ALANINE AMINOTRANSFERASE 13 U/L (12-78); ALBUMIN 2.6 G/DL (3.4-5.0); ALBUMIN/GLOBULIN RATIO 0.7 (1.1-1.5); ALKALINE PHOSPHATASE 49 IU/L (46-116); ANION GAP 7 (8-16); ASPARTATE AMINO TRANSFERASE 13 U/L (10-37); BILIRUBIN,TOTAL 0.7 MG/DL (0.1-1.0); BLOOD UREA NITROGEN 12 MG/DL (7-18); BUN/CREATININE RATIO 12.8 (10.0-20.0); CALCIUM 8.7 MG/DL (8.5-10.1); CHLORIDE 98 MMOL/L (99-107); CREATININE 0.94 MG/DL (0.60-1.10); GLUCOSE 96 MG/DL (70-104); PHOSPHORUS 2.4 MG/DL (2.3-4.5); POTASSIUM 3.9 MMOL/L (3.5-5.1); SODIUM 135 MMOL/L (135-145); TOTAL CARBON DIOXIDE 29.9 MMOL/L (24-32); TOTAL PROTEIN 6.5 G/DL (6.4-8.2); eCRCL 67 ML/MIN; eGFR 78 ML/MIN
[2023-09-15] MEDS: carVEDilol 3.125mg tablet PO SCH (08:30)
[2023-09-15] MEDS: pantoprazole 40mg Tablet.DR PO SCH ×2 (08:30→19:45)
[2023-09-15] MEDS: DAPAGLIFLOZIN 10MG TABLET PO SCH (08:30)
[2023-09-15] MEDS: aspirin 81mg, enteric-coated 1 TAB TABLET.DR PO SCH (08:30)
[2023-09-15] MEDS: spironolactone 25 MG tablet PO SCH (08:31)
[2023-09-15] MEDS: polyethylene glycol 3350 17gm powd pack PO SCH ×2 (08:32→19:48)
--- NOTE | 2023-09-15 14:15 | NUR ---
notified dr erickson re: 14-beat run v-tach. he states he will contact dr osullivan for hospitalist services. pt hr in 90s v paced per relay telegrapher. bp 160/70
--- NOTE | 2023-09-15 18:27 | NUR ---
Problems reprioritized. Patient report given, questions answered & plan of care reviewed with jean-pierre dobson.
[2023-09-15] MEDS: carvedilol 6.25mg tablet PO SCH (19:45)
[2023-09-15] MEDS: HYDROcodone/acetaminophen 10/325mg tab PO PRN (19:56)
[2023-09-15] MEDS: albuterol 2.5 MG/3 ML nebule NEB PRN (20:41)
[2023-09-15] MEDS: potassium Cl 20mEq in D5-NS 1,000 ML IV SCH (20:54)
[2023-09-15] MEDS ORDERED: magnesium Cl slow-release 64mg tablet PO PRN (23:30)
[2023-09-15] MEDS ORDERED: magnesium 4gm in 100ml NS 100 ML IV PRN (23:30)
[2023-09-15] MEDS ORDERED: magnesium 2GM in 50ml NS 50 ML IV PRN (23:30)
[2023-09-15] MEDS ORDERED: potassium Cl 20 mEq SR tablet PO PRN ×2 (23:30)
[2023-09-15] MEDS ORDERED: potassium Cl 40MEQ/1/2NS 520ml 520 ML IV PRN (23:30)
--- NOTE | 2023-09-16 01:17 | NUR ---
AGREE WITH NURSES ASSESSMENT Addendum: 09/16/23 at 0118 by Lakesha Rubio RN Amended: Links added.
--- NOTE | 2023-09-16 02:39 | NUR ---
went to check the patients chest tube and noticed a leak. took off dressing reinforcement, cleaned around wound site, xeroform over wound, cover with gauze, and secured with foam tape. when changing dressing a foul, sour smell was noted.
--- NOTE | 2023-09-16 06:14 | NUR ---
Problems reprioritized. Patient report given, questions answered & plan of care reviewed with Deanna MCMULLEN.
--- NOTE | 2023-09-16 06:19 | NUR ---
Patient in room ORTHO 4012. I have received report from jean-pierre dobson and had the opportunity to ask questions and assume patient care.
[2023-09-16 06:28] VITALS: BP 152/75; PULSE 86; RESP 26; TEMP 98.7; O2SAT 93
[2023-09-16 07:03] LABS: BASOPHILS # (AUTO) 0.1 X10'3 (0-0.2); BASOPHILS % (AUTO) 1.6 % (0-1); EOSINOPHILS # (AUTO) 0.1 X10'3 (0-0.9); EOSINOPHILS % (AUTO) 1.4 % (0-6); HEMATOCRIT 39.6 % (42.0-52.0); HEMOGLOBIN 13.5 g/dl (14.0-17.9); LYMPHOCYTES # (AUTO) 0.7 X10'3 (1.1-4.8); LYMPHOCYTES % (AUTO) 8.6 % (21-51); MEAN CORPUSCULAR HEMOGLOBIN 31.8 PG (27.0-31.0); MEAN CORPUSCULAR HGB CONC 34.1 g/dL (33.0-36.5); MEAN CORPUSCULAR VOLUME 93.1 FL (78-98); MEAN PLATELET VOLUME 7.2 FL (7.4-10.4); MONOCYTES # (AUTO) 0.7 X10'3 (0-0.9); NEUTROPHILS # (AUTO) 6.1 X10'3 (1.8-7.7); NEUTROPHILS % (AUTO) 79.4 % (42-75); PLATELET COUNT 189 X10'3 (140-440); RED BLOOD COUNT 4.25 X10'6 (4.70-6.10); RED CELL DISTRIBUTION WIDTH 12.5 % (11.5-14.5); WHITE BLOOD COUNT 7.7 X10'3 (4.5-11.0)
[2023-09-16 07:08] LABS: ALANINE AMINOTRANSFERASE 21 U/L (12-78); ALBUMIN 2.7 G/DL (3.4-5.0); ALBUMIN/GLOBULIN RATIO 0.6 (1.1-1.5); ALKALINE PHOSPHATASE 59 IU/L (46-116); ANION GAP 7 (8-16); ASPARTATE AMINO TRANSFERASE 14 U/L (10-37); BILIRUBIN,TOTAL 0.6 MG/DL (0.1-1.0); BLOOD UREA NITROGEN 13 MG/DL (7-18); BUN/CREATININE RATIO 13.7 (10.0-20.0); CALCIUM 9.1 MG/DL (8.5-10.1); CHLORIDE 97 MMOL/L (99-107); CREATININE 0.95 MG/DL (0.60-1.10); GLUCOSE 114 MG/DL (70-104); PHOSPHORUS 2.8 MG/DL (2.3-4.5); POTASSIUM 3.7 MMOL/L (3.5-5.1); SODIUM 135 MMOL/L (135-145); TOTAL CARBON DIOXIDE 30.8 MMOL/L (24-32); eCRCL 66 ML/MIN; eGFR 77 ML/MIN
[2023-09-16] MEDS ORDERED: K and/or MAG REPLACEMENT MC SCH (08:00)
[2023-09-16] MEDS: spironolactone 25 MG tablet PO SCH (08:17)
[2023-09-16] MEDS: polyethylene glycol 3350 17gm powd pack PO SCH (08:17)
[2023-09-16] MEDS: aspirin 81mg, enteric-coated 1 TAB TABLET.DR PO SCH (08:17)
[2023-09-16] MEDS: DAPAGLIFLOZIN 10MG TABLET PO SCH (08:17)
[2023-09-16] MEDS: carvedilol 6.25mg tablet PO SCH (08:17)
[2023-09-16] MEDS: pantoprazole 40mg Tablet.DR PO SCH (08:17)
[2023-09-16] MEDS: albuterol 2.5 MG/3 ML nebule NEB PRN (09:29)
[2023-09-16 09:30] VITALS: PULSE 87; RESP 16; O2SAT 92
[2023-09-16 09:37] VITALS: PULSE 87; RESP 18
[2023-09-16 11:11] VITALS: BP 140/72; PULSE 87; RESP 17; TEMP 98.7; O2SAT 95
[2023-09-16] MEDS ORDERED: BUDE10.22 INH (13:18)
[2023-09-16] MEDS ORDERED: CARV6.253 PO (13:18)
--- NOTE | 2023-09-16 15:43 | NUR ---
Dr Redd was notified that tele reported pt had a "Rate Related Bundle" HR = 113. Tele "strips" were faxed to . Dr Redd stated he pt can follow up with his lease administration supervisor, Dr Max. No new orders.
--- NOTE | 2023-09-16 15:48 | NUR ---
Initial: Pt admit for RUL mass, currently POD #6 s/p thorascopic RUL wedge resection, right upper lobectomy, node dissection, and chest tube placement. Pt on a heart healthy diet and overall with poor PO intake, documented with average 46% PO intake since admit meeting 51% estimated energy needs and 62% estimated protein needs. Pt seen at bedside, endorses a very little appetite though states he typically only eats breakfast and dinner with no lunch. Food preferences were obtained and d/w dietary, see below. Pt agrees to ONS to optimize nutrient intake. Recommend Ensure Enlive TID, pending physician approval in EMR. Pt denies food allergies though states he dislikes peas, d/w dietary. Pt denies any difficulty chewing or swallowing. Pt provided with RD contact information and encouraged to reach out if needed. LBM 09/16 per EMR. Will continue to follow closely and monitor need for further nutrition intervention. Recommendations: 1) Liberalize to regular diet if PO intake does not improve 2) [place] food preferences: Yogurt with fruit WB, peach smoothie BIDBD; No eggs to eat or peas 3) Chocolate/vanilla Ensure Enlive TID, pending physician approval in EMR 4) Routine bowel care 5) Weekly scaled weights Addendum: 09/16/23 at [address] Amended: Links added.
[2023-09-16] MEDS ORDERED: ACET-1008 PO (17:10)
--- NOTE | 2023-09-16 18:30 | NUR ---
PT DISCHARGED IN STABLE CONDITION. PT WAS WAITING FOR TO PICK HIM UP, PT DID NOT NOTIFY ME THAT HIS RIDE WAS HERE AND WALKED HIMSELF OUT. UNSURE WHAT TIME PT LEFT FACILITY BUT FAIRLY RECENTLY. IV DCd [facility] INTACT. FOLLOW UP INSTRUCTIONS GIVEN, PT STATES UNDERSTANDING HE NEEDS TO CALL [facility] OFFICE THURSDAY AND MAKE FU APPT AND SET UP CXR PRIOR TO APPT. ALL BELONGINGS IN HAND. Addendum: 09/16/23 at 1833 by Marzena Ko RN Amended: Links added.
== END 2023-09-16 18:20 | disposition home or self-care (01) | DRG 163 ==
LOC: PAS IN 09-10 06:34 → ORTHO 4S 09-10 18:40
PROVIDERS: ADMIT Surgery; ATTEND Surgery
PROC: 07B73ZX Excision of Thorax Lymphatic, Percutaneous Approach, Diagnostic (ICD-10-PCS; 2023-09-10)
PROC: 8E0W4CZ Robotic Assisted Procedure of Trunk Region, Percutaneous Endoscopic Approach (ICD-10-PCS; 2023-09-10)
PROC: 0W9930Z Drainage of Right Pleural Cavity with Drainage Device, Percutaneous Approach (ICD-10-PCS; 2023-09-10)
PROC: 0BBC4ZZ Excision of Right Upper Lung Lobe, Percutaneous Endoscopic Approach (ICD-10-PCS; principal; 2023-09-10 09:56)
DX: C34.11 Malignant neoplasm of upper lobe, right bronchus or lung (principal); J96.00 Acute respiratory failure, unspecified whether with hypoxia or hypercapnia; I47.20 Ventricular tachycardia, unspecified; I50.22 Chronic systolic (congestive) heart failure; J93.9 Pneumothorax, unspecified; I25.5 Ischemic cardiomyopathy; I11.0 Hypertensive heart disease with heart failure; I25.10 Atherosclerotic heart disease of native coronary artery without angina pectoris; Z79.899 Other long term (current) drug therapy
CPT/HCPCS: 36415; 36600; 71045; 71046; 71250; 80053; 81001; 82803; 82948; 83036; 83735; 84100; 85018; 85025; 85610; 85730; 86885; 86900; 86901; 87081; 93005; 94010; 94640; 94664; 94668; 94760; 97116; 97161; 97530; A4615; A4618; A6223; A6258; A6449; A7000; A7048; C1758; C9250; C9290; G0378; J0131; J0690; J1100; J1170; J1885; J2175; J2250; J2370; J2405; J2704; J2710; J3010; J3480; J3490; J7030; J7060; J7120